=== PATIENT | female | born 1995 | race Caucasian/White ===

== ENCOUNTER 2018-05-05 22:07 | Emergency (ER) | payer OTHER ==
[~2018-05-05] VITALS: Ht 167.6 cm; Wt 54.5 kg
[~2018-05-05 22:07] MED LIST: ACETAMINOPHEN W1 TA6 PO; BIRTH CONTROL PILLS; FLEXERIL 1010 MG/TAB PO; MOTRIN 600600 MG/TAB PO; NO HOME MEDICATIONS; PERCOCET 325 MG1 TA2 PO; PRENATAL1 TA7 PO
[2018-05-05 22:12] VITALS: TEMP 98.2
[2018-05-05] MEDS ORDERED: PREDNISONE20 MG PO (22:39)
[2018-05-05 23:47] VITALS: BP 100/59; PULSE 98
== END 2018-05-05 23:48 | disposition home or self-care (01) ==
LOC: COL.ER 22:07
DX: L30.9 Dermatitis, unspecified (principal); J45.909 Unspecified asthma, uncomplicated
CPT/HCPCS: J7512

== ENCOUNTER 2019-03-03 15:27 | Outpatient (CLI) | payer OTHER ==
[~2019-03-03] VITALS: Ht 167.6 cm; Wt 61.4 kg
[~2019-03-03 15:27] MED LIST changes: +PREDNISONE20 MG PO
--- NOTE | 2019-03-03 15:30 | NUR ---
Patient ambulatory to [facility] with significant other, changed into gown, FHR/TOCO monitors placed and explained. Patient states "about 1330 today I think what was my mucus plug came out, been having a lot of dishcarge, have been kind of crampy this entire but no more than usual today or now, felt a little leaking when we got to the hospital", patient states she has had intercourse in the last 24-48hours. Denies any vaginal bleeding. Normal movement felt per patient. Plan of care discussed. SVE-closed/thick/high and amniotest negative and mucus noted on glove. 1601: Dr. Atkinson notified per Yasmeen Grubbs RN.
[2019-03-03 15:36] VITALS: BP 112/70; PULSE 91; TEMP 99.1
[2019-03-03] MEDS ORDERED: PRENATAL (15:50)
[2019-03-03] MEDS ORDERED: NATURAL IRON65 MG (15:50)
[2019-03-03] MEDS ORDERED: ZYRTEC 10MG10 MG PO (15:51)
[2019-03-03] MEDS ORDERED: SLOW FE142 MG PO (15:51)
[2019-03-03 16:00] VITALS: BP 112/70; PULSE 91
--- NOTE | 2019-03-03 16:25 | NUR ---
Patient off monitor. Discharge instructions gone over and patient verbalizes understanding. Signs papers. 1645: Ambulatory off unit with significant other.
== END 2019-03-03 16:45 | disposition home or self-care (01) ==
LOC: LDRO 15:27
DX: O34.62 Maternal care for abnormality of vagina, second trimester (principal); O26.892 Other specified pregnancy related conditions, second trimester; R25.2 Cramp and spasm; Z3A.25 25 weeks gestation of pregnancy

== ENCOUNTER 2019-04-04 15:30 | Outpatient (RCR) | payer OTHER ==
[2019-04-01 10:44] VITALS: BP 101/52; PULSE 102; TEMP 98.3
[~2019-04-04] VITALS: Ht 167.6 cm; Wt 64.0 kg
[~2019-04-04 15:30] MED LIST changes: +ATARAX 25MG25 MG/TAB PO; +NATURAL IRON65 MG; +PRENATAL; +SLOW FE142 MG PO; +ZYRTEC 10MG10 MG PO
[2019-04-04 15:32] VITALS: BP 128/72; PULSE 92; TEMP 98.6
--- NOTE | 2019-04-07 14:01 | NUR ---
Order received to cancel further infusions
== END 2019-04-07 14:02 | disposition home or self-care (01) ==
LOC: EUO 15:30
DX: O99.013 Anemia complicating pregnancy, third trimester (principal); Z79.899 Other long term (current) drug therapy; Z3A.29 29 weeks gestation of pregnancy
CPT/HCPCS: J2916; J7050

== ENCOUNTER 2019-04-04 18:27 | Outpatient (CLI) | payer OTHER ==
[~2019-04-04] VITALS: Ht 165.1 cm; Wt 64.5 kg
--- NOTE | 2019-04-04 18:35 | NUR ---
G3L1 at 30 weeks presents to unit with complaint of rash on legs and cramping. Pt just had iron infusion that was completed at 1730 and once she got home noticed a rash on her legs that was raised and white. Pt denies it being itchy but does describe it as burning. Pt reports consistent back pain and mild cramping to abdomen. Pt reports feeling good movement and denies LOF. Pt denies headache, blurry vision, or RUQ pain. Pt oriented to room, bed in low and locked position, call light within reach. US and toco explained and applied. Plan of care reviewed with patient. Admission assessment started. Vital signs obtained.
[2019-04-04 19:00] VITALS: BP 115/73; PULSE 86; TEMP 98.7
--- NOTE | 2019-04-04 19:20 | NUR ---
RN to patients room to update on plan of care. Pt reports rash is totally gone now and she is no longer having discomfort in her legs but she still has back pain and cramping. Updated patient on plan to give tylenol and monitor for about another hour.
[2019-04-04 20:00] VITALS: BP 103/59; PULSE 93
[2019-04-04 20:25] VITALS: BP 124/64; PULSE 83
--- NOTE | 2019-04-04 20:35 | NUR ---
2019 - RN to bedside to check on patient status. Pt reports feeling much better after tylenol and hydration. Updated on plan of care to discharge home. Pt agreeable at this time. 2034 - Discharge instructions reviewed with patient, pt verbalized understanding. Recommended patient call office and update them on visit and reaction to infusion. Pt plans to call tomorrow. Pt seen ambulating off unit with friend.
== END 2019-04-04 20:35 | disposition home or self-care (01) ==
LOC: LDRO 18:27 → LDR 19:02 → LDRO 20:35
DX: O99.89 Other specified diseases and conditions complicating pregnancy, childbirth and the puerperium (principal); O26.893 Other specified pregnancy related conditions, third trimester; R21 Rash and other nonspecific skin eruption; R25.2 Cramp and spasm; Z3A.30 30 weeks gestation of pregnancy
CPT/HCPCS: OP

== ENCOUNTER → 2019-04-29 | Outpatient (CLI) | payer OTHER | LOC: MC.RAD 06:59 | DX: O99.89 Other specified diseases and conditions complicating pregnancy, childbirth and the puerperium (principal); M79.621 Pain in right upper arm; Z3A.33 33 weeks gestation of pregnancy ==

== ENCOUNTER 2019-06-04 20:29 | Outpatient (CLI) | payer OTHER ==
[~2019-06-04] VITALS: Ht 165.1 cm; Wt 69.1 kg
--- NOTE | 2019-06-04 20:30 | NUR ---
Ambulatory to unit for labor assessment, accompanied by significant other. Oriented to room, monitor, plan of care. Pt reports contractions started @ 5:00pm.
[2019-06-04 20:56] VITALS: TEMP 97.9
[2019-06-04 22:20] VITALS: BP 115/72; PULSE 75
--- NOTE | 2019-06-04 22:30 | NUR ---
SVE unchanged, discussed with pt. Pt states "it's just so frustrating. I wanted to be induced and my dr is going to be out of town". Discussed with pt the 39wks criteria: active labor vs drea soto contractions. Questions invited and aswered.
--- NOTE | 2019-06-04 22:50 | NUR ---
Discharge instructions reviewed with pt and significant other.
== END 2019-06-04 22:50 | disposition home or self-care (01) ==
LOC: LDRO 20:29 → LDR 20:56 → LDRO 22:50
DX: O62.9 Abnormality of forces of labor, unspecified (principal); Z3A.38 38 weeks gestation of pregnancy
CPT/HCPCS: OP

== ENCOUNTER 2019-06-05 05:21 | Inpatient (IN) | payer OTHER ==
[~2019-06-05] VITALS: Ht 165.1 cm; Wt 69.1 kg
[2019-06-05] VITALS (16 sets, daily range): BP systolic 101–131; BP diastolic 56–80; PULSE 74–109; TEMP 97.5–98.3
[2019-06-05 06:07] LABS: BASO % 0.2 % (0.0-2.0); EOS # 0.2 (0.0-0.7); EOS % 1.1 % (0-4.0); GRAN # 12.7 (1.4-6.5); GRAN % 72.9 % (42.2-75.2); HEMOGLOBIN 11.1 g/dl (12.5-16.0); LYMPH # 3.3 (1.2-3.4); LYMPH % 19.1 % (20.0-51.0); MEAN CELL VOLUME 78 fl (80.0-100.0); MEAN CORPUSCULAR HEMOGLOBIN 25 pg (27.0-31.0); MEAN CORPUSCULAR HGB CONC 32 g/dl (33.0-37.0); MEAN PLATELET VOLUME 9.9 fl (7.4-10.4); MONO % 5.7 % (1.7-9.3); PLATELET COUNT 332 K/mm3 (130-400); RED BLOOD COUNT 4.41 M/mm3 (4.10-5.30); REDCELL DISTRIBUTION WIDTH-CV 21.7 % (11.5-14.5)
[2019-06-05 06:11] LABS: HEMATOCRIT 34.3 % (37.0-47.0)
[2019-06-06 03:45] VITALS: BP 112/71; PULSE 87; TEMP 97.8
[2019-06-06 07:20] VITALS: BP 119/72; PULSE 100; TEMP 98.2
[2019-06-06] MEDS ORDERED: IBU600 MG PO (11:35)
== END 2019-06-06 13:20 | disposition home or self-care (01) | DRG 807 ==
LOC: LDRO 05:21 → LDR 05:42 → OB 05:42
PROVIDERS: ADMIT Obstetrics & Gynecology
PROC: 10E0XZZ Delivery of Products of Conception, External Approach (ICD-10-PCS; principal; 2019-06-05)
DX: O99.02 Anemia complicating childbirth (principal); Z37.0 Single live birth; O99.344 Other mental disorders complicating childbirth; F41.9 Anxiety disorder, unspecified; Z3A.38 38 weeks gestation of pregnancy; D64.9 Anemia, unspecified
CPT/HCPCS: J2590; J7120

== ENCOUNTER → 2019-09-26 | Outpatient (CLI) | payer OTHER ==
[~2019-09-26] MED LIST changes: +IBU600 MG PO
== END ==
LOC: ZCOL.LAB 21:53
DX: U07.1 COVID-19 (principal)

== ENCOUNTER 2020-02-29 19:39 | Emergency (ER) | payer OTHER ==
[~2020-02-29] VITALS: Ht 167.6 cm; Wt 59.1 kg
[2020-02-29 20:12] VITALS: BP 108/70; TEMP 98
[2020-02-29 23:02] VITALS: PULSE 83
== END 2020-02-29 23:02 | disposition home or self-care (01) ==
LOC: COL.ER 19:39
DX: S93.401A Sprain of unspecified ligament of right ankle, initial encounter (principal); Z87.891 Personal history of nicotine dependence; X50.1XXA Overexertion from prolonged static or awkward postures, initial encounter

== ENCOUNTER 2021-08-08 21:18 | Emergency (ER) | payer SELFPAY ==
[~2021-08-08] VITALS: Ht 167.6 cm; Wt 54.5 kg
[2021-08-08 21:38] VITALS: TEMP 98.7
[2021-08-08] MEDS ORDERED: FLEXERIL 1010 MG/TAB PO (22:07)
[2021-08-08 22:24] VITALS: BP 114/80; PULSE 88
== END 2021-08-08 22:24 | disposition home or self-care (01) ==
LOC: COL.ER 21:18
DX: S06.0X9A Concussion with loss of consciousness of unspecified duration, initial encounter (principal); S06.2X9A Diffuse traumatic brain injury with loss of consciousness of unspecified duration, initial encounter; Z28.310 Unvaccinated for COVID-19; V49.40XA Driver injured in collision with unspecified motor vehicles in traffic accident, initial encounter; Y92.410 Unspecified street and highway as the place of occurrence of the external cause
CPT/HCPCS: J1885

== ENCOUNTER → 2021-09-05 | Outpatient (CLI) | payer MEDICAID | LOC: MC.RAD 07:25 | DX: N63.11 Unspecified lump in the right breast, upper outer quadrant (principal) ==

== ENCOUNTER 2021-10-20 22:48 | Emergency (ER) | payer MEDICAID ==
[~2021-10-20] VITALS: Ht 167.6 cm; Wt 54.5 kg
[2021-10-20 22:58] VITALS: TEMP 99.2
[2021-10-21] MEDS ORDERED: AMOXICILLIN 8751 TAB PO (00:38)
[2021-10-21 00:51] VITALS: BP 115/87; PULSE 73
== END 2021-10-21 00:51 | disposition home or self-care (01) ==
LOC: COL.ER 22:48
DX: S51.851A Open bite of right forearm, initial encounter (principal); W55.01XA Bitten by cat, initial encounter